=== PATIENT | female | born 1980 | race Caucasian/White ===

== ENCOUNTER 2020-09-16 02:00 | Emergency (ER) | payer MEDICAID ==
[~2020-09-16] VITALS: Ht 162.6 cm; Wt 50.0 kg
[2020-09-16] MEDS ORDERED: ZIPRASIDONE MESYLATE 20MG/VIAL IM ONE (02:45)
[2020-09-16 04:09] LABS: *BARBITURATES SCREEN URINE NEGATIVE (NEGATIVE); *BENZODIAZEPINES SCREEN URINE NEGATIVE (NEGATIVE)
[2020-09-16 04:10] LABS: METHADONE URINE SCREEN NEGATIVE (NEGATIVE); OPIATES URINE SCREEN NEGATIVE (NEGATIVE); PHENCYCLIDINE URINE SCREEN NEGATIVE (NEGATIVE)
[2020-09-16 04:12] LABS: *AMPHETAMINES SCREEN URINE PRESUMTIVE POSITIVE (NEGATIVE); *COCAINE SCREEN URINE PRESUMTIVE POSITIVE (NEGATIVE); CANNABINOID URINE SCREEN PRESUMTIVE POSITIVE (NEGATIVE)
[2020-09-16 08:11] LABS: CHLORIDE 111 mEq/L (98-107)
[2020-09-16 08:13] LABS: BASOPHILS % 0.4 % (0.0-2.0); EOSINOPHILS % 3.7 % (0.0-5.0); HEMATOCRIT. 38.6 % (36.0-48.0); LYMPHOCYTES % 19.6 % (20.0-50.0); MEAN CORPUSCULAR HEMOGLOBIN 31.9 pg (28.0-32.0); MEAN CORPUSCULAR VOLUME 94.7 fL (81.0-99.0); MEAN PLATELET VOLUME 6.7 fl (7.4-10.4); MONOCYTES % 7.9 % (2.0-8.0); NEUTROPHILS % 68.4 % (40.0-76.0); PLATELET 309 x1000/uL (130-400); RED BLOOD CELL COUNT 4.08 mill/uL (4.2-5.4); RED CELL DISTRIBUTION WIDTH 13.5 % (11.6-14.6)
[2020-09-16 08:15] LABS: ETHANOL BLOOD < 10 mg/dL
[2020-09-16 08:18] LABS: HCG SCREEN NEGATIVE
[2020-09-16 09:39] VITALS: BP 110/68
== END 2020-09-16 09:40 | disposition home or self-care (01) ==
LOC: EDBD 02:00 → ER 02:00
DX: T40.5X1A Poisoning by cocaine, accidental (unintentional), initial encounter (principal); T43.621A Poisoning by amphetamines, accidental (unintentional), initial encounter; F14.129 Cocaine abuse with intoxication, unspecified; F23 Brief psychotic disorder; F15.129 Other stimulant abuse with intoxication, unspecified; F91.8 Other conduct disorders; Z78.1 Physical restraint status; Y92.89 Other specified places as the place of occurrence of the external cause
CPT/HCPCS: 36415; 71045; 80053; 80305; 80307; 80320; 80329; 81025; 84703; 85025; 93005; 96372; 99285; J3486; G0480

== ENCOUNTER 2020-10-07 12:40 | Emergency (ER) | payer MEDICAID ==
[~2020-10-07] VITALS: Ht 167.6 cm; Wt 54.0 kg
[2020-10-07 12:43] VITALS: BP 133/74
== END 2020-10-07 15:13 | disposition home or self-care (01) ==
LOC: ER 12:40
DX: R07.89 Other chest pain (principal); R03.0 Elevated blood-pressure reading, without diagnosis of hypertension; Z98.3 Post therapeutic collapse of lung status
CPT/HCPCS: 71045; 81025; 93005; 99283

== ENCOUNTER 2020-10-22 20:09 | Emergency (ER) | payer MEDICAID ==
[~2020-10-22] VITALS: Ht 175.3 cm; Wt 79.0 kg
[2020-10-22] MEDS ORDERED: ACETAMINOPHEN 500MG TABLET PO NR (20:58)
[2020-10-22] MEDS ORDERED: PNV91TAB6 PO (21:35)
[2020-10-23 00:52] VITALS: BP 112/58
== END 2020-10-23 00:56 | disposition home or self-care (01) ==
LOC: ER 20:13 → UNDOADMOB 20:44 → 8 EST LDRP 20:44 → UNDODISOB 23:53 → ER 10-23 00:56
DX: O26.893 Other specified pregnancy related conditions, third trimester (principal); O99.513 Diseases of the respiratory system complicating pregnancy, third trimester; F14.10 Cocaine abuse, uncomplicated; F12.10 Cannabis abuse, uncomplicated; F15.10 Other stimulant abuse, uncomplicated; F41.9 Anxiety disorder, unspecified; K59.00 Constipation, unspecified; Z87.440 Personal history of urinary (tract) infections; Z87.09 Personal history of other diseases of the respiratory system; Z3A.32 32 weeks gestation of pregnancy
CPT/HCPCS: 76805; 99284; G0378